=== PATIENT | female | born 1965 | race Caucasian/White ===

== ENCOUNTER 2017-06-09 22:18 | Emergency (ER) | payer OTHER ==
[2017-06-09 22:30] VITALS: BP 121/71; PULSE 73; TEMP 97.9; BMI 21.9
[2017-06-10] MEDS ORDERED: DEXAMETHASONE LIQUID 0.5 MG/5 ML 240 ML BULK BOTTLE PO ONE (01:38)
[2017-06-10] MEDS ORDERED: DEXAMETHASONE SOD PHOSPHATE 10 MG/1 ML VIAL ONE (01:55)
--- NOTE | 2017-06-10 02:02 | PDOC ---
History of Present Illness - General Chief Complaint: Pain Stated Complaint: PCP SENT Time Seen by Provider: 06/09/17 23:51 Past History - Past Medical History Allergies/Adverse Reactions: Allergies Allergy/AdvReac Type Severity Reaction Status Date / Time No Known Allergies Allergy Verified 06/09/17 22:25 Home Medications: Ambulatory Orders Amox-Tr/K Cl [Augmentin 875Mg Tablet] 1 tab PO BID #28 tablet 06/10/12 Hydrocodone/Acetaminophen [[place] 5-325 Tablet] 1 - 2 tab PO QID PRN #16 tablet 06/10/12 Ibuprofen [Motrin] 600 mg PO QID PRN #20 tablet 06/10/12 Ondansetron [Zofran *Odt*] 4 mg SL TID PRN #12 od.tablet 06/10/12 Diphenhydramine HCl [Benadryl Capsules -] 25 mg PO TID #20 capsule 03/31/16 Prednisone [Deltasone -] 40 mg PO DAILY #8 tablet 03/31/16 Asthma: Yes Cardiac Disorders: Yes (heart murmur) COPD: No - Immunization History Immunization Up to Date: Yes - Suicide/Smoking/Psychosocial Hx Smoking Status: Yes Smoking History: Never smoked Have you smoked in the past 12 months: No Number of Cigarettes Smoked Daily: 5 Cigars Per Day: 0 Information on smoking cessation initiated: No Hx Alcohol Use: No Drug/Substance Use Hx: No Substance Use Type: None *Physical Exam - Vital Signs Last Vital Signs Temp Pulse Resp BP Pulse Ox 97.9 F 73 18 121/71 99 06/09/17 22:25 06/09/17 22:25 06/09/17 22:25 06/09/17 22:25 06/09/17 22:25 ED Treatment Course - RADIOLOGY Radiology Studies Ordered: Category Date Time Status FACIAL BONES CT W/O CONTRAST [CT] Stat CT Scan 06/10/17 00:13 Taken *DC/Admit/Observation/Transfer Diagnosis at time of Disposition: History of recent dental procedure, Pain, dental - Discharge Dispostion Disposition: HOME Condition at time of disposition: Stable Admit: No - Referrals Referrals: Erika Caal MD [Primary Care Provider] - - Patient Instructions Printed Discharge Instructions: DI for Dental Pain Additional Instructions: Please follow up with your oral surgeon TOMORROW for further evaluation of your dental pain. If you develop any difficulty breathing, increased pain, worsening swelling, or any new or worsening symptoms, please return to the ER. - Post Discharge Activity Forms/Work/School Notes: Back to Work
== END 2017-06-10 02:16 | disposition home or self-care (01) ==
LOC: JER 22:18
DX: K08.89 Other specified disorders of teeth and supporting structures (principal); J45.909 Unspecified asthma, uncomplicated; F17.210 Nicotine dependence, cigarettes, uncomplicated
CPT/HCPCS: 70486-TC; 99281-25

== ENCOUNTER 2018-03-15 07:50 | Emergency (ER) | payer OTHER ==
[2018-03-15 08:01] VITALS: TEMP 98.3; BMI 22.1
--- NOTE | 2018-03-15 08:42 | PDOC ---
History of Present Illness - General Chief Complaint: Pain, Acute Stated Complaint: RADIATING L SIDED ABDOMINAL PAIN Time Seen by Provider: 03/15/18 08:42 - History of Present Illness Initial Comments: 03/15/18 09:25 The patient is a 52 year old female with a history of asthma who presents for evaluation of abdominal pain. The patient reports poorly described abdominal pain over the past few weeks. She states that she is scheduled for an endoscopy and colonoscopy on 03/22/18 but noted worsening LLQ twisting abdominal pain over the past 2 days with some observed blood in her stool prompting her presentation to the ED for further evaluation. She reports some intermittent constipation and diarrhea as well as increased urinary frequency. She otherwise denies fevers, chills, SOB, chest pain, nausea, or vomiting. Past History - Past Medical History Allergies/Adverse Reactions: Allergies Allergy/AdvReac Type Severity Reaction Status Date / Time teriparatide [From [facility]] Allergy Verified 03/15/18 07:58 Home Medications: Ambulatory Orders Naproxen [Naprosyn -] 500 mg PO BID PRN #14 tablet 03/15/18 Asthma: Yes Cardiac Disorders: Yes (heart murmur) COPD: No - Immunization History Immunization Up to Date: Yes - Suicide/Smoking/Psychosocial Hx Smoking Status: Yes Smoking History: Never smoked Have you smoked in the past 12 months: No Number of Cigarettes Smoked Daily: 5 Cigars Per Day: 0 Information on smoking cessation initiated: No Hx Alcohol Use: No Drug/Substance Use Hx: No Substance Use Type: None Review of Systems - Review of Systems Comments:: 03/15/18 09:28 Constitutional: No fevers, chills, fatigue, malaise HEENT: No Rhinorrhea, nasal congestion, visual changes Cardiovascular: No chest pain, syncope, palpitations, lightheadedness Respiratory: No Cough, SOB, Hemoptysis, Gastrointestinal: Abdominal pain, constipation, diarrhea. No Nausea, Vomiting, Genitourinary: Increased urinary frequency. No Dysuria, Urgency, Hesitancy, Hematuria, Flank pain Musculoskeletal: No Myalgia, arthralgia Skin: No rashes, itching, bruising, pallor Neurologic: No Headache, Dizziness, Numbness, Weakness, or Tingling Psychiatric: No Hallucinations. No SI or HI *Physical Exam - Vital Signs Last Vital Signs Temp Pulse Resp BP Pulse Ox 98.3 F 89 16 139/83 97 03/15/18 07:59 03/15/18 07:59 03/15/18 07:59 03/15/18 07:59 03/15/18 07:59 - Physical Exam Comments: 03/15/18 09:32 General Appearance: Nourished. No Apparent Distress HEENT: No Pharyngeal Erythema, Tonsillar Exudate, Tonsillar Erythema Neck: No Cervical Lymphadenopathy Respiratory/Chest: Lungs Clear, Normal Breath Sounds. No Crackles, Rales, Rhonchi, Wheezing Cardiovascular: Regular Rhythm, Regular Rate. No Murmur, Gallops, Rubs Gastrointestinal/Abdominal: Normal Bowel Sounds, Soft. Mild Tenderness to palpation in the LLQ. No Guarding, Rebound, Rectal Exam: Normal External exam. No hemorrhoids noted. Normal Brown Stool Musculoskeletal: No CVA Tenderness Extremity: Normal Capillary Refill Integumentary: Normal Color, Dry, Warm Neurologic: Fully Oriented, Alert, Normal Mood/Affect, Normal Response, ED Treatment Course - LABORATORY CBC & Chemistry Diagram: 03/15/18 09:45 03/15/18 09:45 Medical Decision Making - Medical Decision Making 03/15/18 09:50 The patient is a 52 year old female with a history of asthma who presents for evaluation of abdominal pain. Differential includes but is not limited to: Diverticulitis, Colitis, Gastritis, UTI, Infectious, Metabolic Derangement. Given the patient's history and physical exam, we will obtain a cbc, cmp, lipase , ua, urine culture, CT abdomen/pelvis to evaluate further. We will treat with iv fluids and iv tylenol and continue to monitor and reassess while here in the ED. 03/15/18 18:11 CBC, cmp, lipase, ua are unremarkable. CT abdomen/pelvis was unremarkable as read by our radiologist. The patient reports improvement in her symptoms. We are comfortable discharging the patient home with GI and primary care provider follow up. We discussed the results, plan, and return precautions with the patient who voiced understanding and is agreeable with the plan. *DC/Admit/Observation/Transfer Diagnosis at time of Disposition: Abdominal pain Qualifiers: Abdominal location: unspecified location Qualified Code(s): R10.9 - Unspecified abdominal pain - Discharge Dispostion Disposition: HOME Condition at time of disposition: Stable Decision to Admit order: No - Prescriptions Prescriptions: Naproxen [Naprosyn -] 500 mg PO BID PRN #14 tablet PRN Reason: Pain - Referrals Referrals: Erika Caal MD [Primary Care Provider] - - Patient Instructions Printed Discharge Instructions: DI for Abdominal Pain-Adult Additional Instructions: Please return to the ER if you experience concerning or worsening symptoms including worsening difficulty breathing, weakness, or chest pain. Your lab results and CT scan were normal here in the ER. We have sent a prescription for naproxen to your pharmacy that you may use as needed to help manage your pain. Please call to schedule a follow up appointment with your primary care provider within 2-3 days to discuss your ER visit and further management of your symptoms. - Post Discharge Activity
[2018-03-15] MEDS ORDERED: SODIUM CHLORIDE 1,000 ML IV STA ×2 (08:55→11:19)
[2018-03-15] MEDS ORDERED: ACETAMINOPHEN 1000 MG/100 ML VIAL (NON FORMULARY) IVPB ONE (08:55)
[2018-03-15] MEDS ORDERED: ACETAMINOPHEN INJECTION 100 ML IVPB ONE (09:09)
--- NOTE | 2018-03-15 09:45 | PDOC ---
Attending Attestation - Resident Resident Name: Mendel Loo - ED Attending Attestation I have performed the following: I have examined & evaluated the patient, The case was reviewed & discussed with the resident, I agree w/resident's findings & plan - HPI HPI: 03/15/18 09:42 52-year-old female with no severe past medical or surgical history presents with 1 day of increased left lower abdominal pain with blood-tinged stool and nausea. This occurs in the setting of several weeks/months of general GI discomfort described as intermittent diarrhea/constipation, saw a GI specialist a few weeks ago and is scheduled to have colonoscopy in 1 week. She has no known history of diverticulosis or colitis, no surgical history. No fevers or chills or weight loss or night sweats. - Physicial Exam PE: 03/15/18 09:43 Afebrile, vital signs normal Generally well-appearing, no jaundice or pallor Slightly dry mucosa Abdomen is soft, nondistended. Tender in the upper abdomen and left lower quadrant without guarding or rebound, bowel sounds are normal. No CVA tenderness - Medical Decision Making 03/15/18 09:43 52-year-old female with 1 day of worsened left lower quadrant pain in the setting of several weeks of GI discomfort. Question colitis versus diverticulitis, rule out neoplasm. Less consistent with etiology or vascular etiology. Labs, urinalysis IV fluids, pain control CT of the abdomen and pelvis Reassess
[2018-03-15 09:58] LABS: BASO % 0.8 % (0-2.0); EOS % 1.2 % (0-4.5); HEMATOCRIT 38.8 % (32.4-45.2); HEMOGLOBIN 12.9 GM/dL (10.7-15.3); MCH 30.9 pg (25.7-33.7); MCHC 33.2 g/dl (32.0-36.0); MEAN CELL VOLUME 93.2 fl (80-96); MEAN PLT VOLUME 7.3 fl (7.5-11.1); MONO % 6.9 % (3.8-10.2); NEUT % 58.1 % (42.8-82.8); PLATELET COUNT 344 K/MM3 (134-434); RBC 4.17 M/mm3 (3.60-5.2); RDW 13.7 % (11.6-15.6); WHITE BLOOD COUNT 8.3 K/mm3 (4.0-10.0)
[2018-03-15 10:03] LABS: URINE APPEARANCE CLEAR; URINE BILIRUBIN NEGATIVE (<2.0 mg/dL); URINE COLOR STRAW; URINE GLUCOSE (UA) NEGATIVE (NEGATIVE); URINE KETONE NEGATIVE (NEGATIVE); URINE LEUK ESTERASE NEGATIVE (NEGATIVE); URINE NITRITE NEGATIVE (NEGATIVE); URINE PROTEIN NEGATIVE (NEGATIVE); URINE UROBILINOGEN NEGATIVE mg/dL (0.2-1.0)
[2018-03-15 10:04] LABS: EPI CELLS RARE /HPF (FEW)
[2018-03-15 10:26] LABS: ALBUMIN 3.7 g/dl (3.4-5.0); ANION GAP 9 MMOL/L (8-16); BILIRUBIN,TOTAL 0.7 mg/dL (0.2-1); BLOOD UREA NITROGEN 11 mg/dL (7-18); CALCIUM 9.1 mg/dL (8.5-10.1); CHLORIDE 107 mmol/L (98-107); CO2 27 mmol/L (21-32); CREATININE 0.7 mg/dL (0.55-1.3); LIPASE 138 U/L (73-393); POTASSIUM 4.3 mmol/L (3.5-5.1); SGOT/AST 14 U/L (15-37); SODIUM 143 mmol/L (136-145)
[2018-03-15 10:34] LABS: ALK PHOS 94 U/L (45-117); SGPT/ALT 20 U/L (13-61)
[2018-03-15 11:01] VITALS: BP 96/71; PULSE 66
[2018-03-15 12:20] LABS: GLUCOSE,RANDOM 93 mg/dL (74-106)
== END 2018-03-15 14:25 | disposition home or self-care (01) ==
LOC: JER 07:50
PROC: 3E033NZ Introduction of Analgesics, Hypnotics, Sedatives into Peripheral Vein, Percutaneous Approach (ICD-10-PCS; principal; 2018-03-15)
PROC: 3E0337Z Introduction of Electrolytic and Water Balance Substance into Peripheral Vein, Percutaneous Approach (ICD-10-PCS; 2018-03-15)
DX: R10.9 Unspecified abdominal pain (principal); J45.909 Unspecified asthma, uncomplicated; Z72.0 Tobacco use; R01.1 Cardiac murmur, unspecified
CPT/HCPCS: 36415; 74177-TC; 80053; 81003; 81015; 82272; 83690; 85025; 87086; 99283-25; J0131; J7030